=== PATIENT | male | born 1975 | race Two or more races ===

== ENCOUNTER 2020-11-26 07:59 | Emergency (ER) | payer BC, OTHER ==
[~2020-11-26] VITALS: Ht 175.3 cm; Wt 108.9 kg
[2020-11-26] MEDS ORDERED: LIDOCAINE 1% HCL (LOCAL ANESTH.) INJ 20ML MDV IJ ONE (09:00)
[2020-11-26] MEDS ORDERED: TETANUS-DIPTH-ACEL PERTUSSIS 0.5ML SYR Tdap IM ONE (09:00)
[2020-11-26 09:41] VITALS: BP 121/78
[2020-11-26] MEDS ORDERED: BACITRACIN TOP OINT 1 UD PKG TOP ONE (09:45)
== END 2020-11-26 09:39 | disposition home or self-care (01) ==
LOC: ER 07:59
DX: S61.210A Laceration without foreign body of right index finger without damage to nail, initial encounter (principal); E78.5 Hyperlipidemia, unspecified; Z23 Encounter for immunization; W18.39XA Other fall on same level, initial encounter; Y93.89 Activity, other specified; Y92.89 Other specified places as the place of occurrence of the external cause; Y99.8 Other external cause status
CPT/HCPCS: 12001; 73140; 90471; 90715; 99283; J2001